=== PATIENT | female | born 1990 | race African-American/Black ===

== ENCOUNTER 2022-01-15 01:20 | Emergency (ER) | payer OTHER ==
[~2022-01-15] VITALS: Ht 167.6 cm; Wt 83.9 kg
[2022-01-15 01:28] VITALS: BP 106/70
[2022-01-15] MEDS ORDERED: ONDANSETRON 4 MG TAB PO ONE (01:35)
[2022-01-15] MEDS ORDERED: HYDROcodone/APAP 5/325 MG 1 TAB TAB PO ONE (01:50)
--- NOTE | 2022-01-15 02:35 | NUR ---
HAS BEEN CALLED BACK X 2 TO RECEIVE ADDITIONAL MEDICATIONS. JOVITA DAVIS
== END 2022-01-15 02:35 | disposition left against medical advice (07) ==
LOC: MED 01:20
DX: S30.1XXA Contusion of abdominal wall, initial encounter (principal); R11.2 Nausea with vomiting, unspecified; Z88.1 Allergy status to other antibiotic agents; Z88.8 Allergy status to other drugs, medicaments and biological substances; V89.2XXA Person injured in unspecified motor-vehicle accident, traffic, initial encounter; Y93.89 Activity, other specified; Y92.89 Other specified places as the place of occurrence of the external cause; Y99.8 Other external cause status
CPT/HCPCS: 99283; Q0162

== ENCOUNTER 2022-03-17 18:36 | Emergency (ER) | payer OTHER ==
[~2022-03-17] VITALS: Ht 172.7 cm; Wt 83.9 kg
[2022-03-17 18:58] VITALS: BP 123/59
--- NOTE | 2022-03-17 19:06 | NUR ---
PT W/C ASSISTED TO BED 10
--- NOTE | 2022-03-17 19:37 | NUR ---
ERMD AR BEDSIDE
[2022-03-17] MEDS ORDERED: MORPHINE SULFATE 2 MG/ML SYR IVP STA (19:39)
[2022-03-17] MEDS ORDERED: NACL 0.9% 1,000 ML IV ONE (19:40)
[2022-03-17] MEDS ORDERED: HALOPERIDOL IM 5 MG/ML VIAL IM ONE (19:40)
--- NOTE | 2022-03-17 19:41 | NUR ---
32 Y/O FEMALE BIB SELF C/O OF PELVIC PAIN, RECTAL AND VAGINAL BLEEDING. NAUSEA/VOMITING STATES THAT SHE SATURATES 1 PAD EVERY HOUR. STATES THAT SHE HAD SOME INJECTIONS FOR HISTERECTOMY DONE IN [place] FOR HER ENDOMETRIOSIS X4 DAYS AGO. A/OX4 AMBULATORY, UNLABORED BREATHING. ALLERGY: METRONIDAZOLE, TORADOL, NAPROXEN PMH: HX PULMONARY EMBOLISM, ENDOMETRIOSIS, HISTERECTOMY
--- NOTE | 2022-03-17 20:07 | NUR ---
PRODUCTION ASSISTANT AT BEDSIDE OBTAINING BLOOD SAMPLE
[2022-03-17 20:24] LABS: BASOPHILS % (AUTO) 0.3 % (0.0-2.0); EOSINOPHILS % (AUTO) 0.3 % (0.0-4.0); HEMATOCRIT 36.2 % (36-48); HEMOGLOBIN 11.6 g/dL (12.0-16.0); LYMPHOCYTES # (AUTO) 1.4 K/uL (2.5-16.5); LYMPHOCYTES % (AUTO) 16.9 % (20.5-51.1); MEAN CORPUSCULAR HEMOGLOBIN 26 pg (27-31); MEAN CORPUSCULAR HGB CONC 32 g/dL (33-37); MEAN CORPUSCULAR VOLUME 80.8 fL (80-94); MONOCYTES # (AUTO) 0.4 K/uL (0.8-1.0); MONOCYTES % (AUTO) 5.1 % (1.7-9.3); NEUTROPHILS # (AUTO) 6.2 K/uL (1.8-7.7); NEUTROPHILS % (AUTO) 77.4 % (42.2-75.2); PLATELET COUNT (AUTO) 263 K/uL (140-450); RED BLOOD CELL COUNT(AUTO) 4.48 MIL/uL (4.20-5.40); RED CELL DISTRIBUTION WIDTH 17.6 % (11.6-13.7)
[2022-03-17] MEDS ORDERED: diphenhydrAMINE 50 MG/ML VIAL IVP ONE (20:30)
[2022-03-17] MEDS ORDERED: LORazepam 2 MG/ML VIAL IVP ONE (20:30)
[2022-03-17 20:47] LABS: ALBUMIN 3.1 g/dL (3.4-5.0); ANION GAP 13.5 (8-16); CARBON DIOXIDE 23.1 mmol/L (21-32); CREATININE 0.8 mg/dL (0.6-1.3); POTASSIUM 3.6 mmol/L (3.5-5.1); TOTAL BILIRUBIN 0.1 mg/dL (0.0-1.0)
--- NOTE | 2022-03-17 20:58 | NUR ---
PT TAKEN TO CT VIA [facility]
[2022-03-17] MEDS ORDERED: METO-485 PO (21:44)
[2022-03-17] MEDS ORDERED: TRAM50TA3 PO (21:44)
[2022-03-17] MEDS ORDERED: DIPH25TA53 PO (21:44)
[2022-03-17 21:46] VITALS: BP 118/72
--- NOTE | 2022-03-17 23:54 | NUR ---
Patient discharged with v/s stable. Written and verbal after care instructions given and explained. Patient alert, oriented and verbalized understanding of instructions. Ambulatory with steady gait. All questions addressed prior to discharge. Patient advised to follow up with PMD. Rx of TRAMADOL given. Patient educated on indication of medication including possible reaction and side effects. Opportunity to ask questions provided and answered. VSS, A/OX4, UNLABORED BREATHING, AMBULATORY, AND CALM DEMEANOR. PT LEFT PRIOR TO RECIEVING DC PAPERWORK. IV REMOVED.
== END 2022-03-17 23:57 | disposition home or self-care (01) ==
LOC: MED 18:36
DX: R10.2 Pelvic and perineal pain (principal); N80.9 Endometriosis, unspecified; I26.99 Other pulmonary embolism without acute cor pulmonale; Z79.1 Long term (current) use of non-steroidal anti-inflammatories (NSAID); Z88.1 Allergy status to other antibiotic agents; Z90.710 Acquired absence of both cervix and uterus
CPT/HCPCS: 36415; 74177; 80053; 85025; 96361; 96372; 96374; 96375; 99285; J1200; J1630; J2060; J2270; J7030; Q9967

== ENCOUNTER 2023-01-01 06:00 | Emergency (ER) | payer OTHER ==
[~2023-01-01] VITALS: Ht 167.6 cm; Wt 79.4 kg
[~2023-01-01 06:00] MED LIST: DIPH25TA53 PO; METO-485 PO; TRAM50TA3 PO
[2023-01-01 06:22] VITALS: BP 130/91
--- NOTE | 2023-01-01 06:37 | NUR ---
PT AMBULATE TO ROOM 8
[2023-01-01] MEDS ORDERED: NACL 0.9% 1,000 ML IV SCH (06:40)
[2023-01-01] MEDS ORDERED: MORPHINE SULFATE 4 MG/ML SYR IVP ONE ×3 (06:40→09:30)
[2023-01-01] MEDS ORDERED: ONDANSETRON 4 MG/2 ML VIAL IVP ONE (06:40)
[2023-01-01 07:20] LABS: BASOPHILS % (AUTO) 0.3 % (0.0-2.0); EOSINOPHILS % (AUTO) 0.6 % (0.0-4.0); HEMATOCRIT 37.5 % (36-48); HEMOGLOBIN 11.9 g/dL (12.0-16.0); LYMPHOCYTES # (AUTO) 1.9 K/uL (2.5-16.5); LYMPHOCYTES % (AUTO) 32.2 % (20.5-51.1); MEAN CORPUSCULAR HEMOGLOBIN 25 pg (27-31); MEAN CORPUSCULAR HGB CONC 32 g/dL (33-37); MEAN CORPUSCULAR VOLUME 80.1 fL (80-94); MONOCYTES # (AUTO) 0.3 K/uL (0.8-1.0); MONOCYTES % (AUTO) 5.7 % (1.7-9.3); NEUTROPHILS # (AUTO) 3.6 K/uL (1.8-7.7); NEUTROPHILS % (AUTO) 61.2 % (42.2-75.2); PLATELET COUNT (AUTO) 266 K/uL (140-450); RED BLOOD CELL COUNT(AUTO) 4.68 MIL/uL (4.20-5.40); RED CELL DISTRIBUTION WIDTH 19.2 % (11.6-13.7); WHITE BLOOD COUNT (AUTO) 5.9 K/uL (4.8-10.8)
--- NOTE | 2023-01-01 07:25 | NUR ---
REPORT RECEIVED FROM SHASHI WELLER. ASSUMED CARE AT THIS TIME
--- NOTE | 2023-01-01 07:35 | NUR ---
pt awake and c/o 9/10 new pain onset. MD MADE AWARE
[2023-01-01] MEDS ORDERED: diphenhydrAMINE 50 MG/ML VIAL IVP ONE (08:15)
[2023-01-01 09:21] LABS: PROTHROMBIN TIME 12.1 secs (10.8-13.4)
[2023-01-01 09:39] VITALS: BP 126/89
--- NOTE | 2023-01-01 09:41 | NUR ---
pt taken to ct via tabatha
[2023-01-01 09:54] LABS: ALBUMIN 3.2 g/dL (3.4-5.0); ANION GAP 12.2 (8-16); CARBON DIOXIDE 24.3 mmol/L (21-32); CREATININE 0.7 mg/dL (0.6-1.3); POTASSIUM 3.5 mmol/L (3.5-5.1); TOTAL BILIRUBIN 0.3 mg/dL (0.0-1.0)
--- NOTE | 2023-01-01 10:00 | NUR ---
pt brought back via [facility]
[2023-01-01 10:29] LABS: APPEARANCE,URINE CLEAR (CLEAR); BILIRUBIN,URINE NEGATIVE (NEGATIVE); BLOOD, URINE TRACE-I (NEGATIVE); COLOR,URINE YELLOW (YELLOW); LEUKOCYTE ESTERASE ,URINE NEGATIVE (NEGATIVE); NITRITE, URINE NEGATIVE (NEGATIVE); UGLUCOSE NEGATIVE (NEGATIVE)
--- NOTE | 2023-01-01 11:23 | NUR ---
IV removed, catheter intact and site benign. Applied folded 4x4 gauze and tape to stop bleeding.
--- NOTE | 2023-01-01 11:25 | NUR ---
Patient discharged with v/s stable. Written and verbal after care instructions FOR ABD PAIN AND CONSTIPATION given and explained. Patient verbalized understanding. Ambulatory with steady gait. All questions addressed prior to discharge. Advised to follow up with PMD.
--- NOTE | 2023-01-01 11:27 | NUR ---
The patient's care was reviewed and supervised by Iwona Cunningham RN.
== END 2023-01-01 11:25 | disposition home or self-care (01) ==
LOC: MED 06:00
DX: R10.84 Generalized abdominal pain (principal); K59.00 Constipation, unspecified; K92.2 Gastrointestinal hemorrhage, unspecified; N80.9 Endometriosis, unspecified; I10 Essential (primary) hypertension; Z79.1 Long term (current) use of non-steroidal anti-inflammatories (NSAID); Z88.8 Allergy status to other drugs, medicaments and biological substances; Z90.49 Acquired absence of other specified parts of digestive tract; Z90.710 Acquired absence of both cervix and uterus; Z98.890 Other specified postprocedural states
CPT/HCPCS: 36415; 71045; 74177; 80053; 81003; 83690; 85025; 85610; 85730; 86886; 86900; 86901; 93005; 96374; 96375; 96376; 99291; J1200; J2270; J2405; J7030; Q0092; Q9967

== ENCOUNTER 2023-05-15 01:35 | Emergency (ER) | payer OTHER ==
[~2023-05-15] VITALS: Ht 165.1 cm; Wt 77.1 kg
[2023-05-15 01:49] VITALS: BP 111/86; PULSE 96; RESP 20; TEMP 97; O2SAT 100
[2023-05-15 02:37] LABS: BASOPHILS % (AUTO) 0.5 % (0.0-2.0); EOSINOPHILS % (AUTO) 1.1 % (0.0-4.0); HEMATOCRIT 40.6 % (36-48); LYMPHOCYTES # (AUTO) 1.4 K/uL (2.5-16.5); LYMPHOCYTES % (AUTO) 32.2 % (20.5-51.1); MEAN CORPUSCULAR HEMOGLOBIN 28 pg (27-31); MEAN CORPUSCULAR HGB CONC 32 g/dL (33-37); MEAN CORPUSCULAR VOLUME 86.4 fL (80-94); MONOCYTES # (AUTO) 0.2 K/uL (0.8-1.0); MONOCYTES % (AUTO) 5.2 % (1.7-9.3); NEUTROPHILS # (AUTO) 2.6 K/uL (1.8-7.7); PLATELET COUNT (AUTO) 214 K/uL (140-450); RED CELL DISTRIBUTION WIDTH 17.5 % (11.6-13.7); WHITE BLOOD COUNT (AUTO) 4.2 K/uL (4.8-10.8)
[2023-05-15 03:02] LABS: ALBUMIN 3.9 g/dL (3.4-5.0); CALCIUM 9.3 mg/dL (8.5-10.1); CARBON DIOXIDE 27.7 mmol/L (21-32); CREATININE 0.8 mg/dL (0.6-1.3); POTASSIUM 3.7 mmol/L (3.5-5.1); TOTAL BILIRUBIN 0.2 mg/dL (0.0-1.0); TOTAL PROTEIN, SERUM 7.7 g/dL (6.4-8.2)
[2023-05-15] MEDS ORDERED: ONDANSETRON 4 MG ODT PO ONE (03:15)
[2023-05-15] MEDS ORDERED: NACL 0.9% 1,000 ML IV ONE (03:30)
[2023-05-15] MEDS ORDERED: MORPHINE SULFATE 4 MG/ML SYR IVP ONE ×2 (03:30→04:10)
[2023-05-15] MEDS ORDERED: IBUP-2213 PO (04:27)
[2023-05-15] MEDS ORDERED: ONDA8TAB87 PO (04:27)
[2023-05-15] MEDS ORDERED: HYDR-5191 PO (04:27)
[2023-05-15 04:35] VITALS: BP 113/83; PULSE 92; RESP 20; TEMP 97; O2SAT 100
== END 2023-05-15 04:35 | disposition home or self-care (01) ==
LOC: MED 01:35
DX: R10.13 Epigastric pain (principal); R11.2 Nausea with vomiting, unspecified; R07.89 Other chest pain; Z98.890 Other specified postprocedural states; Z79.899 Other long term (current) drug therapy; Z88.8 Allergy status to other drugs, medicaments and biological substances
CPT/HCPCS: 36415; 80053; 85025; 85379; 93005; 96361; 96374; 96375; 99284; J2270; J7030; Q0162

== ENCOUNTER 2023-05-29 03:05 | Emergency (ER) | payer OTHER ==
[~2023-05-29] VITALS: Ht 165.1 cm; Wt 79.4 kg
[~2023-05-29 03:05] MED LIST changes: +HYDR-5191 PO; +IBUP-2213 PO; +ONDA8TAB87 PO
[2023-05-29 03:13] VITALS: BP 110/51; PULSE 107; RESP 20; TEMP 98; O2SAT 98
[2023-05-29 04:05] LABS: BASOPHILS % (AUTO) 0.2 % (0.0-2.0); EOSINOPHILS % (AUTO) 0.8 % (0.0-4.0); HEMATOCRIT 38.9 % (36-48); HEMOGLOBIN 12.6 g/dL (12.0-16.0); LYMPHOCYTES # (AUTO) 1.4 K/uL (2.5-16.5); LYMPHOCYTES % (AUTO) 24.4 % (20.5-51.1); MEAN CORPUSCULAR HEMOGLOBIN 28 pg (27-31); MEAN CORPUSCULAR HGB CONC 33 g/dL (33-37); MEAN CORPUSCULAR VOLUME 86.4 fL (80-94); MONOCYTES # (AUTO) 0.3 K/uL (0.8-1.0); MONOCYTES % (AUTO) 4.4 % (1.7-9.3); NEUTROPHILS # (AUTO) 4.1 K/uL (1.8-7.7); NEUTROPHILS % (AUTO) 70.2 % (42.2-75.2); PLATELET COUNT (AUTO) 203 K/uL (140-450); RED BLOOD CELL COUNT(AUTO) 4.51 MIL/uL (4.20-5.40); RED CELL DISTRIBUTION WIDTH 17.7 % (11.6-13.7); WHITE BLOOD COUNT (AUTO) 5.8 K/uL (4.8-10.8)
[2023-05-29] MEDS ORDERED: ONDANSETRON 4 MG/2 ML VIAL IVP ONE (04:05)
[2023-05-29] MEDS ORDERED: NACL 0.9% 1,000 ML IV ONE (04:05)
[2023-05-29] MEDS ORDERED: MORPHINE SULFATE 4 MG/ML SYR IVP ONE ×2 (04:25→04:45)
[2023-05-29 04:43] LABS: ALBUMIN 3.7 g/dL (3.4-5.0); ANION GAP 12.8 (8-16); CALCIUM 9.3 mg/dL (8.5-10.1); CARBON DIOXIDE 23.9 mmol/L (21-32); CREATININE 0.8 mg/dL (0.6-1.3); POTASSIUM 3.7 mmol/L (3.5-5.1); TOTAL BILIRUBIN 0.1 mg/dL (0.0-1.0); TOTAL PROTEIN, SERUM 7.5 g/dL (6.4-8.2)
[2023-05-29 04:55] LABS: APPEARANCE,URINE CLEAR (CLEAR); BILIRUBIN,URINE NEGATIVE (NEGATIVE); BLOOD, URINE NEGATIVE (NEGATIVE); COLOR,URINE YELLOW (YELLOW); LEUKOCYTE ESTERASE ,URINE NEGATIVE (NEGATIVE); NITRITE, URINE NEGATIVE (NEGATIVE); PH,URINE 6.5 (5.0-9.0); PROTEIN,URINE NEGATIVE (NEGATIVE); UGLUCOSE NEGATIVE (NEGATIVE); UROBILINOGEN,URINE 0.2 EU/dL (0.2 - 1)
[2023-05-29] MEDS ORDERED: BOWEL EVACUANT DRINK 4,000 ML PDS PO ONE (05:15)
[2023-05-29] MEDS ORDERED: DOCU283N RC ×2 (05:30→05:48)
[2023-05-29] MEDS ORDERED: LACT-58 PO ×2 (05:30→05:48)
[2023-05-29 05:51] LABS: AMPHETAMINE, URINE NEGATIVE ng/ml (NEG <=1000); BARBITURATE, URINE NEGATIVE ng/ml (NEG <=200); BENZODIAZEPINE, URINE POSITIVE ng/mL (NEG <=200); CANNABINOID, URINE NEGATIVE ng/mL (NEG <=50); COCAINE, URINE NEGATIVE ng/mL (NEG <=300); OPIATE, URINE POSITIVE ng/mL (NEG <=2000); PHENCYCLIDINE SCREEN,URINE NEGATIVE ng/mL (NEG <=25)
[2023-05-29 05:52] VITALS: BP 124/79; PULSE 85; RESP 18; TEMP 98.3; O2SAT 100
== END 2023-05-29 05:51 | disposition home or self-care (01) ==
LOC: MED 03:05
DX: K59.00 Constipation, unspecified (principal); E86.0 Dehydration; G89.29 Other chronic pain; F41.9 Anxiety disorder, unspecified; Z98.890 Other specified postprocedural states; Z86.718 Personal history of other venous thrombosis and embolism; Z79.899 Other long term (current) drug therapy; Z79.1 Long term (current) use of non-steroidal anti-inflammatories (NSAID); Z88.6 Allergy status to analgesic agent; Z88.1 Allergy status to other antibiotic agents
CPT/HCPCS: 36415; 74021; 80053; 80305; 81003; 81025; 83690; 85025; 96361; 96374; 96375; 99284; J2270; J2405; J7030